=== PATIENT | male | born 1970 | race African-American/Black ===

== ENCOUNTER 2016-03-28 18:11 | Inpatient (IN) ==
[2016-03-28] MEDS ORDERED: SODIUM CHLORIDE 0.9% 1,000 ML IV STA (19:13)
--- NOTE | 2016-03-28 19:18 | Emergency Department Note ---
Arrival - Arrival Chief Complaint: Sickle Cell Stated Complaint: possiblity of blood count up/sickle cell ED Nursing Triage Note: brother reports that pt started feeling bad last night c /o sickle cell pain. today pt has been having jerking spells and less responsive. pt is jerking around in wheelchair during triage. sclera in eyes noted yellow. reports that he does this when his counts are low. Mode of Arrival: Wheelchair Limitations: Altered Mental Status Source: Family Time Seen by Provider: 03/28/16 19:07 - History of Present Illness HPI Narrative: This 45-year-old black male presents with a history of awakening this morning with an alleged sickle cell attack. This history is gleaned from a family member as the patient himself although oriented 3 gives a confused history. Initially the family thought he was here for leukemia but the patient states it is sickle cell. However, he has not followed in [place], and is followed by a physician in [place]. Currently he appears in bed alert but doing serpentine motions with his extremities and complaining of total body pain. Family members present state this is what his attacks look like and that his pain associated with this disease is a generalized pain. Other then the bizarre body motions the patient appears in no acute distress. Onset (ago): hour(s) (patient presents 12 hours post onset of symptoms) Consistency: constant Allergies/Adverse Reactions: Allergies Allergy/AdvReac Type Severity Reaction Status Date / Time codeine Allergy Unknown/Unable Verified 03/28/16 18:32 to obtain Review of System - Review of System 12 point system: reviewed and no additional remarkable complaints except as stated - Review of System Constitutional: Present: as per HPI Musculoskeletal: Present: as per HPI Medical,Surgical,& Family Hx - Medical History Hematology: History of: Sickle Cell Disease - Social History Smoking Status: Never smoker Exam Physical Examination: GENERAL: Thin frail black male presents with serpentine motions of all extremities in no acute distress. HEENT: Normocephalic. No trauma. Moist mucous membranes. EOMI. PERRLA. ENT clear NECK: Supple. No adenopathy. CARDIAC: Regular. No murmurs. Heart rate 106 CHEST: Clear to auscultation. No respiratory distress. O2 sat 95% ABDOMEN: Soft. Nontender. Active bowel sounds. EXTREMITIES: No trauma. Normal ROM. No pedal edema. SKIN: No diaphoresis. No rash. NEURO: Alert. Oriented 3 but not fully coherent. Motor sensory vibratory intact despite bizarre motor movements of the extremities. No focal deficits. Vital Signs: Vital Signs Temperature 101.2 F H 03/28/16 18:40 Pulse Rate 106 H 03/28/16 18:40 Respiratory Rate 28 H 03/28/16 18:40 Blood Pressure 112/60 03/28/16 18:40 O2 Sat by Pulse Oximetry 100 03/28/16 18:40 Course - Reevaluation(s) Reevaluation #1: Discussed with family the need for hospitalization - Consultations Consultation #1: Discussed with Dr. Tran, hospitalist, who will admit for further evaluation and treatment. Results - Labs CBC & BMP: 03/28/16 18:51 03/28/16 19:53 Labs: I reviewed the patient's laboratory results and noted the very elevated white blood cell count, but very depressed red blood cell count, the very elevated retic count, the extremely elevated total CK, and the elevated BUN and creatinine. - Impressions EKG: Sinus tachycardia 101 with normal AL interval and QRS duration. Positive for left ventricular hypertrophy noted with evidence of old lateral wall myocardial infarction. Notable was absence of severely elevated T waves. No acute injury pattern noted. - Diagnostic Findings Procedure: Chest x-ray: image reviewed by me, report reviewed by me (increased perihilar opacities that could indicate pneumonia or simply scarring), CT: image reviewed by me, report reviewed by me (head: No acute findings but evidence of scattered transient lucencies consistent with multiple myeloma) Disposition Clinical Impression: sickle cell disease, severe anemia, acute renal failure, rhabdomyolysis Case discussed with: patient, patient's family Disposition: Still a Patient Condition: Guarded Time of Disposition: 21:02
[2016-03-28] MEDS ORDERED: cefTRIAXone 1,000 MG in SODIUM CHLORIDE 0.9% 100 ML IV STA (19:24)
--- NOTE | 2016-03-28 19:35 | CT Report ---
CT head/brain wo con Indication: Mental status changes Comparison: None Technique: Multiple axial tomographic images of the brain were obtained without use of intravenous contrast. Findings: Midline structures are nondisplaced. There is no acute intracranial hemorrhage or evidence of hydrocephalus. Atherosclerotic calcifications noted. Senescent mineralization the bilateral basal ganglia present. Paranasal sinuses and mastoid air cells are clear. Scattered subcentimeter nonspecific lucencies within the calvarium. IMPRESSION: No acute intracranial abnormality demonstrated. Scattered subcentimeter lucencies demonstrated within the calvarium. This finding is nonspecific. Multiple myeloma is not excluded. PROCEDURE INTERPRETED AT [facility] Final Report Signed by: Dr Jeremias Herring
[2016-03-28 19:50] LABS: Basophils % 0.1 % (0.0-0.8); Immature Granulocytes % 0.9 %; Immature Granulocytes Absolute 0.25 #; Lymphocytes # 2.1 10*3/uL (1.4-4.0); Lymphocytes % 7.9 % (21.2-54.2); Mean Corpuscular HGB Conc 35.4 GM/DL (32-36); Mean Corpuscular Hemoglobin 29 PG (27-34); Mean Corpuscular Volume 81.7 FL (87-102); Mean Platelet Volume 11.2 FL (9.6-12.0); Monocytes # 2.5 10*3/uL (0.11-0.8); Monocytes % 9.3 % (1.7-12.7); NRBC # 0.89 10*3/uL; Neutrophils # 21.8 10*3/uL (1.4-7.4); Neutrophils % 81.8 % (38.7-73.9); Platelet Count 413 10*3/uL (130-400); Red Cell Distribution Width 19.7 % (9.3-17.3); White Blood Count 26.6 10*3/uL (4.5-13.71)
[2016-03-28 19:53] LABS: Hematocrit 14.7 VOL% (42.0-52.0); Hemoglobin 5.2 GM/DL (14.0-18.0)
[2016-03-28 20:11] LABS: INR 1.2
[2016-03-28] MEDS ORDERED: cefTRIAXone 1,000 MG VIAL ONE (20:13)
--- NOTE | 2016-03-28 20:17 | XRay Report ---
XR chest 1V portable Indication: Altered mental status Comparison: None Technique: Single frontal view of the chest Findings: Mild cardiomegaly. Mild bilateral perihilar opacities may reflect early consolidative process such pulmonary edema or pneumonia. No pneumothorax. Osseous and surrounding soft tissue structures demonstrate no acute abnormality. Mild S-shaped curvature of the spine. IMPRESSION: As above. PROCEDURE INTERPRETED AT [facility] DEPARTMENT OF RADIOLOGY Final Report Signed by: Dr Jeremias Herring
[2016-03-28 20:29] LABS: Ammonia 56 UMOL/L (11-32)
[2016-03-28 20:39] LABS: Alanine Aminotransferase 137 U/L (16-61); Albumin 3.8 G/DL (3.4-5.0); Alkaline Phosphatase 160 U/L (45-117); Aspartate Amino Transferase 235 U/L (0-37); Blood Urea Nitrogen 86 MG/DL (7-18); Calcium 7.9 MG/DL (8.5-10.1); Glucose 107 MG/DL (74-106); Osmolality,Calculated 306.3 MOS/KG (273-304); Sodium 141 MMOL/L (136-145); Total Protein 7.6 G/DL (6.4-8.3)
[2016-03-28 20:44] LABS: CKMB % 0.8 %; Troponin I Only 0.096 NG/ML (0.00-0.045)
[2016-03-28 20:46] LABS: Potassium 7.2 MMOL/L (3.5-5.1)
[2016-03-28] MEDS ORDERED: CALCIUM CHLORIDE 1,000 MG/10 ML SYRINGE IV STA (20:55)
[2016-03-28] MEDS ORDERED: ALBUTEROL NEB SOLN 5 MG/ML 20 ML/BOTTLE CONT NEB STA (20:55)
[2016-03-28] MEDS ORDERED: DEXTROSE 50% 25 GM/50 ML VIAL IV STA (20:58)
[2016-03-28] MEDS ORDERED: SODIUM BICARBONATE 50 MEQ/50 ML VIAL IV STA (20:58)
[2016-03-28] MEDS ORDERED: INSULIN REGULAR 100 UNIT/ML SUBCUT STA (20:58)
--- NOTE | 2016-03-28 21:01 | EKG Report ---
Stationary ECG Study [facility] ER Test Date: 03/28/2016 9:01:03 PM Pat Name: PHAM GUY Department: Room: Gender: M Occupational Therapy Co Director: : 1970 Requested by: Mg Rivera Order Number: [id number] Reading MD: TWYLA PANDYA Intervals Anza Rate: 101 P: 38 IL: 146 QRS: 78 QRSD: 96 T: 49 QT: 355 QTc: 413 Interpretive Statements SINUS TACHYCARDIA MODERATE VOLTAGE CRITERIA FOR LVH, CONSIDER NORMAL VARIANT POSSIBLE LATERAL MYOCARDIAL INFARCTION, PROBABLY OLD ABNORMAL RHYTHM ECG Electronically Signed On 03-28-16 21:32:16 RESEARCH ADMINISTRATOR by TWYLA PANDYA [email or web address]
[2016-03-28] MEDS ORDERED: SODIUM BICARBONATE 50 MEQ/50 ML VIAL IV ONE (21:19)
[2016-03-28] MEDS ORDERED: DEXTROSE 50% 25 GM/50 ML VIAL IV ONE (21:19)
[2016-03-28] MEDS ORDERED: CALCIUM CHLORIDE 1,000 MG/10 ML SYRINGE IV ONE (21:20)
[2016-03-28] MEDS ORDERED: INSULIN REGULAR 100 UNIT/ML ONE (21:23)
[2016-03-28] MEDS ORDERED: LORazepam 2 MG/1 ML VIAL IV STA (21:53)
[2016-03-28] MEDS ORDERED: HYDROmorphone 2 MG/1 ML VIAL IV STA (21:55)
[2016-03-28 21:59] LABS: Lymphocytes 9 % (20-55); Nucleated Red Blood Cells 4 (0-5); Platelet Estimate Normal; Polychromasia Few; Segmented Neutrophils 90 % (50-85); Total Cells Counted 100
[2016-03-28 22:00] LABS: Sickle Cells 1+; Target Cells Few
[2016-03-28] MEDS ORDERED: HYDROmorphone 2 MG/1 ML VIAL ONE (22:07)
--- NOTE | 2016-03-28 22:07 | Hospitalist History & Physical ---
Assessment and Plan (1) Sickle cell anemia with pain Status: Acute Assessment and plan: The patient is admitted to the hospital with profound anemia consistent with sickle cell disease and painful crisis. His difficult to interpret the patient' s examination which may be due to substance withdrawal. The patient will be treated for pain with Dilaudid and 4 substance withdrawal with Ativan. We'll observe him in the intensive care unit. We have have obtained blood cultures and will obtain urine study when urine is available. The patient will be treated with IV antibiotics will check lactate level. The patient will receive IV hydration and fluid challenge. The patient has acute renal failure based on elevated creatinine as well as acidosis. We will recheck potassium in 3 hours and continue to treat as required. Current Visit: Yes History of Present Illness Chief complaint: generalized pain with altered mental status and coreaform movements History of present illness: Mr. Vergara is a 45 year old male from [facility]. He is accompanied by his father who states that he has had sickle cell anemia with medical care since a child. The father states that the patient lives in [place] became to visit him here near [place] yesterday. The patient's father states that he awoke this morning complaining of generalized pain consistent with sickle cell crisis. The pain worsened through the day and the family brought him to our emergency room this afternoon. The patient has become progressively less alert and continues to have cordiform movements and does not lay still even if commanded. The patient's symptoms are associated with fever. The patient's symptoms are not associated with shortness of breath. The patient's symptoms are associated with profound anemia and leukocytosis. The patient is now admitted to the hospital for treatment of apparent sickle cell crisis with rhabdomyolysis and acute renal failure with possible underlying chronic kidney failure. The patient's father states that his last hospitalization was about 3 weeks ago in [place] but knows no details about that hospitalization. Allergies Allergy/AdvReac Type Severity Reaction Status Date / Time codeine Allergy Unknown/Unable Verified 03/28/16 18:32 to obtain Medical,Surgical,& Family Hx - Medical History Hematology: History of: Sickle Cell Disease - Family History Family History: Reports;: Family Hypertension - Social History Smoking Status: Never smoker Marital Status: Lives With:: Spouse Functional capacity: independent ambulation 12 point system: reviewed and no additional remarkable complaints except as stated Exam - Constitutional Vitals: Period Temp Pulse Resp BP Sys/Craig Pulse Ox Last 24 Hr 101.2 F-101.2 F 100-106 18-28 104-112/47-60 95-100 Exam: Constitutional System: Moderate distress. Moderate tremulousness. The patient is unable to cooperate with interview due to altered mental status Head: Normocephalic, atraumatic. Ears, Nose and Throat System: No evidence of Otitis or Mastoiditis. No epistaxis or discharge Eyes System: Pupils equal, round, and reactive. Extraocular muscles intact. Neck: Supple, without adenopathy, No jugular venous distention. No thyromegaly , neck mass, or prior surgery apparent. Respiratory System: Chest clear to auscultation. Cardiovascular System: Heart with regular rate and rhythm. No murmur. GI System: Abdomen soft, nontender. Normoactive bowel sounds present. Musculoskeletal System: limbs with no pedal edema. Full distal pulses. Reduced muscular bulk and tone Neurological System: Moves all extremities Psychiatric System: Conversation is confused, delirious Results - Labs CBC & BMP: 03/28/16 18:51 03/28/16 19:53 Lab Results: I have reviewed the past 24 hour labs
[2016-03-28] MEDS ORDERED: LORazepam 2 MG/1 ML VIAL ONE (22:08)
[2016-03-28] MEDS ORDERED: SODIUM CHLORIDE 0.9% 1,000 ML IV ONE (22:45)
[2016-03-28] MEDS ORDERED: ONDANSETRON 4 MG/2 ML VIAL IV PRN (22:45)
[2016-03-28] MEDS ORDERED: ACETAMINOPHEN 325 MG TABLET PO PRN (23:00)
[2016-03-28] MEDS ORDERED: SODIUM CHLORIDE 0.9% 250 ML IV PRN (23:04)
[2016-03-29] MEDS: ENOXAPARIN 40 MG/0.4 ML SYRINGE SUBCUT SCH ×2 (01:12→23:35)
[2016-03-29] MEDS: SODIUM CHLORIDE 0.9% 1,000 ML IV SCH (01:41)
[2016-03-29 01:47] LABS: Basophils % 0.1 % (0.0-0.8); Immature Granulocytes % 0.8 %; Immature Granulocytes Absolute 0.19 #; Lymphocytes # 3.5 10*3/uL (1.4-4.0); Lymphocytes % 14.3 % (21.2-54.2); Mean Corpuscular HGB Conc 33.1 GM/DL (32-36); Mean Corpuscular Hemoglobin 28 PG (27-34); Mean Corpuscular Volume 83.1 FL (87-102); Mean Platelet Volume 10.5 FL (9.6-12.0); Monocytes # 3.2 10*3/uL (0.11-0.8); Monocytes % 13.1 % (1.7-12.7); NRBC # 1.21 10*3/uL; Neutrophils # 17.7 10*3/uL (1.4-7.4); Neutrophils % 71.7 % (38.7-73.9); Platelet Count 320 10*3/uL (130-400); Red Cell Distribution Width 20.1 % (9.3-17.3); White Blood Count 24.7 10*3/uL (4.5-13.71)
[2016-03-29 01:59] LABS: Hematocrit 11.8 VOL% (42.0-52.0); Hemoglobin 3.9 GM/DL (14.0-18.0); Red Blood Count 1.42 10*6/uL (3.8-5.5)
[2016-03-29 02:02] LABS: Barbiturates Screen,Urine Negative (Negative); Benzodiazepines Screen,Urine Negative (Negative); Cannabinoid Screen,Urine Negative (Negative); Opiate Screen,Urine Positive (Negative); Phencyclidine Screen,Urine Negative (Negative)
[2016-03-29 02:15] LABS: Calcium 7.6 MG/DL (8.5-10.1); Magnesium 1.8 MG/DL (1.8-2.4); Osmolality,Calculated 317.4 MOS/KG (273-304)
[2016-03-29 02:31] LABS: Lactic Acid 0.7 MMOL/L (0.4-2.0)
[2016-03-29 03:06] LABS: Troponin I Only 0.153 NG/ML (0.00-0.045)
--- NOTE | 2016-03-29 07:24 | Hospitalist Progress Note ---
Assessment and Plan (1) Sickle cell anemia with pain Status: Acute Assessment and plan: The patient is admitted to the hospital with profound anemia consistent with sickle cell disease and painful crisis. His difficult to interpret the patient' s examination which may be due to substance withdrawal. The patient will be treated for pain with Dilaudid and for substance withdrawal with Ativan. The patient continues therapy in the intensive care unit. He is hemodynamically stable. We will continue IV antibiotics, hydration, transfusion , and do surveillance for infection. The patient has profound acute kidney injury apparently due to dehydration. We don't have a record of possible underlying kidney disease. We will obtain ultrasound of renal system to rule out obstruction and obtain nephrology consultation. Potassium and creatinine show an improving trend. Current Visit: Yes Hospitalist: Subjective Interval history: The patient is awake but sedated in the intensive care unit. He is no longer having choreoform movements. The patient is breathing comfortably. Blood transfusion is underway Exam - Constitutional Vitals: Period Temp Pulse Resp BP Sys/Craig Pulse Ox Last 24 Hr 98.9 F-99.8 F 90-120 12-26 94-122/39-78 92-100 Exam: Constitutional System: The patient sedated this morning but without distress. Head: Normocephalic, atraumatic. Ears, Nose and Throat System: No evidence of Otitis or Mastoiditis. No epistaxis or discharge Eyes System: Pupils equal, round, and reactive. Extraocular muscles intact. Neck: Supple, without adenopathy, No jugular venous distention. No thyromegaly , neck mass, or prior surgery apparent. Respiratory System: Chest clear to auscultation. Cardiovascular System: Heart with regular tachycardic rate and rhythm. No murmur. GI System: Abdomen soft, nontender. Normoactive bowel sounds present. Musculoskeletal System: limbs with no pedal edema. Full distal pulses. Reduced muscular bulk and tone Results - Labs CBC & BMP: 03/29/16 01:24 03/29/16 01:24 Lab Results: I have reviewed the past 24 hour labs
[2016-03-29 08:19] LABS: Apearance,Urine Slightly Hazy (Clear); Bacteria,Urine Occasional /HPF (Few); Bilirubin,Urine Negative (Negative); Blood, Urine Large mg/dL (Negative); Glucose,Urine (UA) Negative (Negative); Ketones,Urine Negative (Negative); Mucus,Urine Occasional /LPF (Occasional); Nitrite,Urine Negative (Negative); Protein,Urine 30 MG/DL; RBC,Urine 16 /HPF (0-4); Squamous Epithelial Cell,Urine Occasional /HPF (0-10); Urine Color Yellow (Yellow); Urine Specific Gravity 1.009 (1.001-1.035); Urine Urobilinogen < 2.0 EU/DL (0.2-1.0); WBC,Urine 35 /HPF (0-6)
[2016-03-29 08:22] LABS: Barbiturates Screen,Urine Negative (Negative); Benzodiazepines Screen,Urine Negative (Negative); Cannabinoid Screen,Urine Negative (Negative); Opiate Screen,Urine Positive (Negative); Phencyclidine Screen,Urine Negative (Negative)
[2016-03-29] MEDS ORDERED: PANTOPRAZOLE 40 MG TABLET PO SCH (09:00)
--- NOTE | 2016-03-29 09:50 | Ultrasound Report ---
Exam: US renal Bilateral Date: 03/28/2016 11:21 PM Comparison: None Indication: Elevated renal function tests Technique: Multiple transabdominal real-time scans were obtained. Color flow scans were obtained. Ultrasound images were captured and stored. Findings: Right kidney measures 105 x 47 x 41 mm. Left kidney measures 139 x 74 x 59 mm. No hydronephrosis. 16 mm simple appearing right lower pole renal cyst. 25 mm irregular hypoechoic finding in the upper pole of the right kidney. More inhomogeneous echogenicity in the left kidney with poorly defined 38 mm complex cystic midpole finding. Impression: No hydronephrosis. 16 mm simple appearing right lower pole renal cyst. Indeterminant 25 mm irregular complex finding in the upper pole of the right kidney. This finding could be related to infectious process, infarction, mass, etc. Additionally the left kidney demonstrates more inhomogeneous echogenicity which can be seen with possible medical renal disease with 38 mm irregular complex cyst in the mid pole location. CT may be helpful for further evaluation. PROCEDURE INTERPRETED AT [facility] DEPARTMENT OF RADIOLOGY Final Report Signed by: Dr. Barbara Pena
--- NOTE | 2016-03-29 12:01 | Nephrology Consult Note ---
History of Present Illness Chief complaint: ARF History of present illness: Mr. Vergara is a 45 year old male with sickle cell disease who presented with a crisis and was found to be in acute renal failure. He had a hematocrit of 11 and has been transfused. He was not acidotic but was hyperkalemic and that is improved. With fluid resuscitation he is making urine and decreasing his serum potassium. He is arousable but very twitchy. He's a thin man with a clear chest and heart without rub or gallop. He has no peripheral edema at all. Other lab indicates muscle injury and rhabdomyolysis with a 4000 CPK and strongly positive urine for blood with only 15 red cells per high power field on admission. Impression sickle cell crisis with acute renal failure #2 hyperkalemia secondary to acute renal failure #3 profound anemia secondary to sickle cell disease. Plan: His serum sodium is rising and we will decrease the sodium content of his IV fluids but continue to give his fluid at 125/h and add bicarbonate to alkalinize his urine. His serum creatinine should continue to follow with his adequate blood pressure. Allergies Allergy/AdvReac Type Severity Reaction Status Date / Time codeine Allergy Unknown/Unable Verified 03/28/16 18:32 to obtain Medical,Surgical,& Family Hx - Medical History Hematology: History of: Sickle Cell Disease - Family History Family History: Reports;: Family Hypertension - Social History Smoking Status: Never smoker Type of Drug Use: Unknown Review of Systems 12 point system: reviewed and no additional remarkable complaints except as stated Exam - Vital Signs Vital signs: Period Temp Pulse Resp BP Sys/Craig Pulse Ox Last 24 Hr 98.9 F-100 F 90-120 12-26 94-153/39-78 91-100 - General Appearance General appearance: chronically ill EENT: ATNC Neck: no JVD, no thyromegaly, no carotid bruit, supple Respiratory: no kyphosis, no scoliosis Cardiology: no murmurs, no rub, no gallops, no edema, regular rate, regular rhythm, normal S1, normal S2 Gastrointestinal: normoactive bowel sounds Integumentary: no rash, warm and dry Neurologic: no focal deficit, no asterixis, alert and oriented x3, reflexes 2+ and symmetric, gait normal, strength 5/5 Musculoskeletal: no deformities, no erythema, no cyanosis, no clubbing Psychiatric: agitated Results - Labs CBC & BMP: 03/29/16 01:24 03/29/16 01:24 Assessment and Plan (1) Renal failure (ARF), acute on chronic Status: Acute Current Visit: Yes (2) Sickle cell anemia with pain Status: Acute Current Visit: Yes Specialty Discharge - Follow Up or Referrals - Speciality Discharge Instructions Nephrology Instructions: 03/20 NS with 50meq bicarb at 125cc/hr.
[2016-03-29] MEDS ORDERED: SODIUM CHLORIDE 0.9% 250 ML IV PRN (12:07)
[2016-03-29 12:42] LABS: Basophils % 0.1 % (0.0-0.8); Hematocrit 25.8 VOL% (42.0-52.0); Hemoglobin 8.2 GM/DL (14.0-18.0); Immature Granulocytes % 0.9 %; Immature Granulocytes Absolute 0.26 #; Lymphocytes # 0.5 10*3/uL (1.4-4.0); Lymphocytes % 1.6 % (21.2-54.2); Mean Corpuscular HGB Conc 31.8 GM/DL (32-36); Mean Corpuscular Hemoglobin 29 PG (27-34); Mean Corpuscular Volume 89.9 FL (87-102); Mean Platelet Volume 10.3 FL (9.6-12.0); Monocytes # 2.6 10*3/uL (0.11-0.8); Monocytes % 8.9 % (1.7-12.7); NRBC # 2.12 10*3/uL; Neutrophils # 26.1 10*3/uL (1.4-7.4); Neutrophils % 88.5 % (38.7-73.9); Platelet Count 319 10*3/uL (130-400); Red Blood Count 2.87 10*6/uL (3.8-5.5); Red Cell Distribution Width 19.3 % (9.3-17.3); White Blood Count 29.5 10*3/uL (4.5-13.71)
[2016-03-29] MEDS: SODIUM CHLORIDE 23.4% CONC INJ 38.5 MEQ, SODIUM BICARB INJ 50 MEQ in STERILE WATER INJ ... IV SCH (15:27)
[2016-03-29] MEDS ORDERED: IBUPROFEN 200 MG TABLET PO PRN (16:25)
[2016-03-29] MEDS: LEVOFLOXACIN INJ 500 MG in PREMIX 1 EACH IV SCH (16:38)
[2016-03-29] MEDS ORDERED: DEXTROSE 50% 25 GM/50 ML VIAL IV PRN (18:20)
[2016-03-29] MEDS ORDERED: GLUCAGON 1 MG VIAL IM PRN (18:20)
[2016-03-29] MEDS: cefTRIAXone 1,000 MG in SODIUM CHLORIDE 0.9% 100 ML IV SCH (20:09)
[2016-03-30] MEDS: SODIUM CHLORIDE 23.4% CONC INJ 38.5 MEQ, SODIUM BICARB INJ 50 MEQ in STERILE WATER INJ ... IV SCH ×2 (02:19→10:17)
[2016-03-30] MEDS: HYDROmorphone 2 MG/1 ML VIAL IV PRN ×4 (02:54→19:36)
[2016-03-30 04:41] LABS: Basophils # 0.1 10*3/uL (0.0-0.2); Basophils % 0.2 % (0.0-0.8); Hematocrit 19.1 VOL% (42.0-52.0); Immature Granulocytes Absolute 0.77 #; Lymphocytes # 2.2 10*3/uL (1.4-4.0); Lymphocytes % 5.7 % (21.2-54.2); Mean Corpuscular HGB Conc 33.5 GM/DL (32-36); Mean Corpuscular Hemoglobin 29 PG (27-34); Mean Corpuscular Volume 86.4 FL (87-102); Mean Platelet Volume 10.7 FL (9.6-12.0); Monocytes # 3.3 10*3/uL (0.11-0.8); Monocytes % 8.5 % (1.7-12.7); Neutrophils # 31.9 10*3/uL (1.4-7.4); Neutrophils % 83.6 % (38.7-73.9); Platelet Count 289 10*3/uL (130-400); Red Blood Count 2.21 10*6/uL (3.8-5.5); Red Cell Distribution Width 19.3 % (9.3-17.3); White Blood Count 38.2 10*3/uL (4.5-13.71)
[2016-03-30 05:17] LABS: Albumin 2.8 G/DL (3.4-5.0); Bilirubin,Total 2.5 MG/DL (0.2-1.0); Calcium 7.9 MG/DL (8.5-10.1); Osmolality,Calculated 324.7 MOS/KG (273-304); Potassium 5.4 MMOL/L (3.5-5.1); Total Protein 6.2 G/DL (6.4-8.3)
[2016-03-30 05:34] LABS: Hemoglobin 6.4 GM/DL (14.0-18.0)
[2016-03-30 06:05] LABS: Band Neutrophils 2 % (0-10); Elliptocytes Few; Hypochromasia 1+; Lymphocytes 11 % (20-55); Macrocytosis Slight; Nucleated Red Blood Cells 10 (0-5); Platelet Estimate Adequate; Polychromasia Slight; Segmented Neutrophils 85 % (50-85); Sickle Cells 1+; Total Cells Counted 100
--- NOTE | 2016-03-30 08:20 | Hospitalist Progress Note ---
Assessment and Plan (1) Sickle cell anemia with pain Status: Acute Assessment and plan: The patient is admitted to the hospital with profound anemia consistent with sickle cell disease and painful crisis. His difficult to interpret the patient' s examination which may be due to substance withdrawal. The patient will be treated for pain with Dilaudid and for substance withdrawal with Ativan. The patient continues therapy in the intensive care unit. He is hemodynamically stable. We will continue IV antibiotics, hydration, transfusion , and do surveillance for infection. The patient has profound acute kidney injury apparently due to dehydration. Creatinine and urine output are improving. The patient will receive additional transfusion today and he continues on nutrition via NG tube. The patient seems to be improving via incremental fashion Current Visit: Yes Hospitalist: Subjective Interval history: The patient is more alert today. He is not taking any oral medications or nutrition yet. The patient has less tremulousness. The patient appears to still have some pain. The patient received 2 units packed red blood cell transfusion yesterday and hemoglobin has dropped some more. We are going to give no additional 2 units packed red blood cells today. The patient has some urine output today. Exam - Constitutional Vitals: Period Temp Pulse Resp BP Sys/Craig Pulse Ox Last 24 Hr 97 F-103.5 F 64-121 12-30 96-153/42-77 90-96 Exam: Constitutional System: The patient is more interactive today than he was yesterday Head: Normocephalic, atraumatic. Ears, Nose and Throat System: No evidence of Otitis or Mastoiditis. No epistaxis or discharge Eyes System: Pupils equal, round, and reactive. Extraocular muscles intact. Neck: Supple, without adenopathy, No jugular venous distention. No thyromegaly , neck mass, or prior surgery apparent. Respiratory System: Chest clear to auscultation. Cardiovascular System: Heart with regular tachycardic rate and rhythm. No murmur. GI System: Abdomen soft, he appears to have some generalized tenderness. Normoactive bowel sounds present. Musculoskeletal System: limbs with no pedal edema. Full distal pulses. Reduced muscular bulk and tone Results - Labs CBC & BMP: 03/30/16 03:33 03/30/16 03:33 Lab Results: I have reviewed the past 24 hour labs
[2016-03-30] MEDS: PANTOPRAZOLE 40 MG VIAL IV SCH (08:27)
--- NOTE | 2016-03-30 09:05 | Nephrology Progress Note ---
Nephrology - PN: Subj Interval history: Mr. Vergara is seen in follow-up of his acute renal failure. He is improved with his creatinine now down to 3.7 from yesterday 7.1. His potassium is 5.4 but serum sodium is risen to 152. He is more alert. He has no edema urine output is brisk We will eliminate sodium from his IV fluid and give some free water by his NG tube. We will continue his supplemental bicarbonate for now. In summary he is improved with his improving renal function. His hematocrit is 19 he will be further transfuse today. Exam (PN)-Nephrology - Vital Signs Vital signs: Period Temp Pulse Resp BP Sys/Craig Pulse Ox Last 24 Hr 97 F-103.5 F 64-121 12-30 96-143/42-77 90-96 - Lab 03/30/16 03:33 03/30/16 03:33 Most recent lab results Calcium 7.9 MG/DL (8.5-10.1) L 03/30/16 03:33 Magnesium 1.8 MG/DL (1.8-2.4) 03/29/16 01:24 Assessment and Plan (1) Renal failure (ARF), acute on chronic Status: Acute Current Visit: Yes (2) Sickle cell anemia with pain Status: Acute Current Visit: Yes
--- NOTE | 2016-03-30 10:38 | XRay Report ---
3 short of breath Comparison 03/28/2016 The heart is mildly enlarged. NG tube traverses the chest There has been worsening of moderate bilateral hazy and interstitial pulmonary opacities in the lower two thirds of the chest with a worsening small bilateral pleural effusions. Upper lobe vasculature is prominent Impression: worsening of the diffuse bilateral pulmonary opacities most likely edema PROCEDURE INTERPRETED AT [facility] DEPARTMENT OF RADIOLOGY Final Report Signed by: Dr. Janneth Salgado
[2016-03-30] MEDS: SODIUM BICARB INJ 50 MEQ in DEXTROSE 5% 1,000 ML IV SCH ×2 (12:37→21:33)
[2016-03-30] MEDS: SODIUM CHLORIDE 0.9% 1,000 ML IV SCH (14:01)
[2016-03-30] MEDS: cefTRIAXone 1,000 MG in SODIUM CHLORIDE 0.9% 100 ML IV SCH (19:38)
[2016-03-30] MEDS: LORazepam 2 MG/1 ML VIAL IV PRN (21:12)
[2016-03-31] MEDS: ENOXAPARIN 40 MG/0.4 ML SYRINGE SUBCUT SCH ×2 (00:46→21:45)
[2016-03-31] MEDS: HYDROmorphone 2 MG/1 ML VIAL IV PRN ×10 (01:00→22:26)
[2016-03-31] MEDS: LORazepam 2 MG/1 ML VIAL IV PRN ×3 (03:13→23:34)
[2016-03-31 04:12] LABS: Basophils % 0.1 % (0.0-0.8); Eosinophils # 0.1 10*3/uL (0.0-0.87); Eosinophils % 0.4 % (0.00-10.9); Hematocrit 24.9 VOL% (42.0-52.0); Hemoglobin 8.4 GM/DL (14.0-18.0); Immature Granulocytes % 1.2 %; Immature Granulocytes Absolute 0.33 #; Lymphocytes # 1.7 10*3/uL (1.4-4.0); Lymphocytes % 6.5 % (21.2-54.2); Mean Corpuscular HGB Conc 33.7 GM/DL (32-36); Mean Corpuscular Hemoglobin 29 PG (27-34); Mean Corpuscular Volume 86.5 FL (87-102); Mean Platelet Volume 10.3 FL (9.6-12.0); Monocytes # 2.1 10*3/uL (0.11-0.8); Monocytes % 7.7 % (1.7-12.7); NRBC # 1.35 10*3/uL; Neutrophils # 22.5 10*3/uL (1.4-7.4); Neutrophils % 84.1 % (38.7-73.9); Platelet Count 253 10*3/uL (130-400); Red Blood Count 2.88 10*6/uL (3.8-5.5); Red Cell Distribution Width 17.7 % (9.3-17.3); White Blood Count 26.8 10*3/uL (4.5-13.71)
[2016-03-31 04:40] LABS: Calcium 7.7 MG/DL (8.5-10.1); Magnesium 1.5 MG/DL (1.8-2.4); Osmolality,Calculated 318.9 MOS/KG (273-304); Potassium 4.3 MMOL/L (3.5-5.1)
[2016-03-31] MEDS: SODIUM BICARB INJ 50 MEQ in DEXTROSE 5% 1,000 ML IV SCH ×2 (06:14→12:07)
[2016-03-31] MEDS ORDERED: MAGNESIUM SULF RIDER 2 GM in PREMIX 1 EACH IV ONE (07:45)
--- NOTE | 2016-03-31 08:47 | Nephrology Progress Note ---
Nephrology - PN: Subj Interval history: Mr. Ross is seen in follow-up of his acute renal failure in the midst of a sickle cell crisis. His creatinine is improving now down to 1.9. His measured serum bicarbonate is 30 and serum sodium still 151. We will discontinue sodium bicarbonate from his IV fluids and continue with the D5W administration. His hematocrit this morning is 25%. Overall he is improved but his mental status is still variable. No distress. Exam (PN)-Nephrology - Vital Signs Vital signs: Period Temp Pulse Resp BP Sys/Craig Pulse Ox Last 24 Hr 98.0 F-100.1 F 90-117 12-25 104-177/58-99 94-99 - Lab 03/31/16 03:40 03/31/16 03:40 Most recent lab results Calcium 7.7 MG/DL (8.5-10.1) L 03/31/16 03:40 Magnesium 1.5 MG/DL (1.8-2.4) L 03/31/16 03:40 Assessment and Plan (1) Renal failure (ARF), acute on chronic Status: Acute Current Visit: Yes (2) Sickle cell anemia with pain Status: Acute Current Visit: Yes
[2016-03-31] MEDS: PANTOPRAZOLE 40 MG VIAL IV SCH (09:10)
--- NOTE | 2016-03-31 09:31 | Hospitalist Progress Note ---
Assessment and Plan (1) Sickle cell anemia with pain Status: Acute Assessment and plan: The patient is admitted to the hospital with profound anemia consistent with sickle cell disease and painful crisis. I met with the patient's last evening and updated her concerning his medical status. She states that this is his typical sickle cell crisis and that occasionally he is delirious for several days. The patient's describes him as unlikely to use recreational pharmaceuticals. The patient will be treated for pain with Dilaudid and for substance withdrawal with Ativan. The patient continues therapy in the intensive care unit. He is hemodynamically stable. We will continue IV antibiotics, hydration, transfusion , and do surveillance for infection. The patient has profound acute kidney injury apparently due to dehydration. Creatinine and urine output are improving. The patient will not require additional transfusion today and he continues on nutrition via NG tube. The patient seems to be improving via incremental fashion Current Visit: Yes Hospitalist: Subjective Interval history: The patient is more alert today. The patient remains delirious but is cooperative. The patient has less tremulousness today. The patient is tolerating tube feedings but is unable to take medications or nutrition by mouth. Exam - Constitutional Vitals: Period Temp Pulse Resp BP Sys/Craig Pulse Ox Last 24 Hr 98.0 F-99.5 F 90-117 12-25 107-177/58-99 94-99 Exam: Constitutional System: The patient is more interactive today than he was yesterday Head: Normocephalic, atraumatic. Ears, Nose and Throat System: No evidence of Otitis or Mastoiditis. No epistaxis or discharge Eyes System: Pupils equal, round, and reactive. Extraocular muscles intact. Neck: Supple, without adenopathy, No jugular venous distention. No thyromegaly , neck mass, or prior surgery apparent. Respiratory System: Chest clear to auscultation. Cardiovascular System: Heart with regular tachycardic rate and rhythm. No murmur. GI System: Abdomen soft, he appears to have some generalized tenderness. Normoactive bowel sounds present. Musculoskeletal System: limbs with no pedal edema. Full distal pulses. Reduced muscular bulk and tone Results - Labs CBC & BMP: 03/31/16 03:40 03/31/16 03:40 Lab Results: I have reviewed the past 24 hour labs
[2016-03-31] MEDS: DEXTROSE 5% 1,000 ML IV SCH ×2 (11:46→20:05)
[2016-03-31] MEDS: LEVOFLOXACIN INJ 500 MG in PREMIX 1 EACH IV SCH (15:38)
[2016-03-31 18:26] LABS: Hematocrit 36.4 VOL% (42.0-52.0)
[2016-03-31 18:27] LABS: Hemoglobin 12.3 GM/DL (14.0-18.0)
[2016-03-31] MEDS: cefTRIAXone 1,000 MG in SODIUM CHLORIDE 0.9% 100 ML IV SCH (19:59)
[2016-04-01] MEDS: HYDROmorphone 2 MG/1 ML VIAL IV PRN ×7 (02:29→23:26)
[2016-04-01 04:40] LABS: Basophils # 0.1 10*3/uL (0.0-0.2); Basophils % 0.2 % (0.0-0.8); Eosinophils # 0.4 10*3/uL (0.0-0.87); Eosinophils % 1.5 % (0.00-10.9); Hematocrit 32.2 VOL% (42.0-52.0); Hemoglobin 10.8 GM/DL (14.0-18.0); Immature Granulocytes % 0.8 %; Immature Granulocytes Absolute 0.18 #; Lymphocytes # 1.6 10*3/uL (1.4-4.0); Lymphocytes % 6.7 % (21.2-54.2); Mean Corpuscular HGB Conc 33.5 GM/DL (32-36); Mean Corpuscular Hemoglobin 29 PG (27-34); Mean Corpuscular Volume 86.1 FL (87-102); Mean Platelet Volume 10.6 FL (9.6-12.0); Monocytes # 1.9 10*3/uL (0.11-0.8); Monocytes % 8.1 % (1.7-12.7); NRBC # 1.33 10*3/uL; Neutrophils # 19.6 10*3/uL (1.4-7.4); Neutrophils % 82.7 % (38.7-73.9); Platelet Count 222 10*3/uL (130-400); Red Blood Count 3.74 10*6/uL (3.8-5.5); Red Cell Distribution Width 17.1 % (9.3-17.3); White Blood Count 23.8 10*3/uL (4.5-13.71)
[2016-04-01] MEDS: LORazepam 2 MG/1 ML VIAL IV PRN ×3 (05:02→23:30)
[2016-04-01 05:03] LABS: Calcium 8.3 MG/DL (8.5-10.1); Magnesium 1.7 MG/DL (1.8-2.4); Osmolality,Calculated 299.7 MOS/KG (273-304); Potassium 4.1 MMOL/L (3.5-5.1)
[2016-04-01] MEDS: DEXTROSE 5% 1,000 ML IV SCH ×3 (05:07→22:03)
[2016-04-01 05:35] LABS: Band Neutrophils 3 % (0-10); Lymphocytes 6 % (20-55); Metamyelocytes 1 %; Nucleated Red Blood Cells 6 (0-5); Segmented Neutrophils 86 % (50-85); Total Cells Counted 100
[2016-04-01 05:36] LABS: Acanthocytes Few; Anisocytosis 1+; Hypochromasia 1+; Macrocytosis 1+; Ovalocytes 1+; Platelet Estimate Normal; Sickle Cells Few
--- NOTE | 2016-04-01 08:53 | Hospitalist Progress Note ---
Assessment and Plan (1) Hypertension Status: Acute Current Visit: Yes (2) Altered mental status Status: Acute Current Visit: Yes (3) Sickle cell anemia with pain Status: Acute Current Visit: Yes (4) Renal failure (ARF), acute on chronic Status: Acute Assessment and plan: Review of Dr. Tran's notes this patient was admitted to the hospital with profound anemia consistent with a sickle cell disease and crisis. He discussed the case with the patient's and she states that it is typical in his sickle cell disease that he becomes delirious for several days. We'll continue to observe patient in the intensive care unit is on IV antibiotics hydration and his been transfused. Continue with nutrition to the NG tube. Blood pressure is elevated we'll need to address Current Visit: Yes Hospitalist: Subjective Interval history: Patient's still confused. Exam - Constitutional Vitals: Period Temp Pulse Resp BP Sys/Craig Pulse Ox Last 24 Hr 97.6 F-99.2 F 72-101 12-21 134-190/76-110 92-100 General appearance: normal weight - ENT ENT exam: Present: normal exam - Neck Neck exam: Present: normal inspection - Respiratory Respiratory exam: Present: clear to auscultation bilaterally - Cardiovascular Cardiovascular exam: Present: regular rate and rhythm - GI/Abdominal GI/Abdominal exam: Present: normal bowel sounds - Extremities Exam Extremities exam: Present: normal inspection - Back Exam Back exam: Present: normal inspection - Neurological Exam Neurological exam: Present: altered - Psychiatric Psychiatric exam: Present: other (patient is confused) - Skin Skin exam: Present: normal color Results - Labs CBC & BMP: 04/01/16 04:11 04/01/16 04:11
[2016-04-01] MEDS ORDERED: MAGNESIUM SULF RIDER 1 GM in PREMIX 1 EACH IV ONE (08:55)
[2016-04-01] MEDS ORDERED: EPOETIN ALFA 10,000 UNIT/1 ML VIAL SUBCUT SCH (09:00)
[2016-04-01] MEDS: PANTOPRAZOLE 40 MG VIAL IV SCH (09:11)
[2016-04-01] MEDS: hydrALAZINE 20 MG/1 ML VIAL IV PRN ×2 (09:13→23:35)
--- NOTE | 2016-04-01 09:28 | Nephrology Progress Note ---
Nephrology - PN: Subj Interval history: Mr. Vergara is improved with a creatinine now of 1.2. No longer required bicarbonate is IV fluids. He is calm but not very conversant. His chest is clear and he has no peripheral edema. He does not appear to be in crisis any longer. We will sign off for now. Please reconsult if needed Exam (PN)-Nephrology - Vital Signs Vital signs: Period Temp Pulse Resp BP Sys/Craig Pulse Ox Last 24 Hr 97.6 F-99.2 F 72-101 12-21 134-190/76-113 92-100 - Lab 04/01/16 04:11 04/01/16 04:11 Most recent lab results Calcium 8.3 MG/DL (8.5-10.1) L 04/01/16 04:11 Magnesium 1.7 MG/DL (1.8-2.4) L 04/01/16 04:11 Assessment and Plan (1) Renal failure (ARF), acute on chronic Status: Acute Current Visit: Yes (2) Sickle cell anemia with pain Status: Acute Current Visit: Yes
[2016-04-01] MEDS ORDERED: cloNIDine 0.3 MG/24 HR PATCH TRANSDERM SCH (12:00)
[2016-04-01] MEDS: SKIN HEALING OINT (AQUAPHOR) 50 GM TUBE TOP PRN (12:08)
[2016-04-01] MEDS: cefTRIAXone 1,000 MG in SODIUM CHLORIDE 0.9% 100 ML IV SCH (19:28)
[2016-04-01] MEDS: ENOXAPARIN 40 MG/0.4 ML SYRINGE SUBCUT SCH (23:26)
[2016-04-02 03:58] LABS: Basophils % 0.2 % (0.0-0.8); Eosinophils # 0.3 10*3/uL (0.0-0.87); Eosinophils % 1.3 % (0.00-10.9); Hematocrit 36.2 VOL% (42.0-52.0); Hemoglobin 11.6 GM/DL (14.0-18.0); Immature Granulocytes % 0.7 %; Immature Granulocytes Absolute 0.18 #; Lymphocytes # 1.5 10*3/uL (1.4-4.0); Lymphocytes % 6.2 % (21.2-54.2); Mean Corpuscular Hemoglobin 29 PG (27-34); Mean Corpuscular Volume 91.4 FL (87-102); Mean Platelet Volume 11.4 FL (9.6-12.0); Monocytes # 2.2 10*3/uL (0.11-0.8); Monocytes % 8.8 % (1.7-12.7); NRBC # 1.16 10*3/uL; Neutrophils # 20.3 10*3/uL (1.4-7.4); Neutrophils % 82.8 % (38.7-73.9); Platelet Count 197 10*3/uL (130-400); Red Blood Count 3.96 10*6/uL (3.8-5.5); Red Cell Distribution Width 16.8 % (9.3-17.3); White Blood Count 24.5 10*3/uL (4.5-13.71)
[2016-04-02] MEDS: HYDROmorphone 2 MG/1 ML VIAL IV PRN ×5 (04:16→20:52)
[2016-04-02 04:47] LABS: Calcium 8.3 MG/DL (8.5-10.1); Osmolality,Calculated 283.7 MOS/KG (273-304); Phosphorous 3.9 MG/DL (2.5-4.9); Potassium 5.1 MMOL/L (3.5-5.1); Prealbumin 12.6 MG/DL (20-40)
[2016-04-02] MEDS: DEXTROSE 5% 1,000 ML IV SCH ×2 (06:00→13:40)
[2016-04-02] MEDS: PANTOPRAZOLE 40 MG VIAL IV SCH (09:37)
[2016-04-02] MEDS: SKIN HEALING OINT (AQUAPHOR) 50 GM TUBE TOP PRN (09:38)
--- NOTE | 2016-04-02 13:01 | Hospitalist Progress Note ---
Assessment and Plan (1) Hypertension Status: Acute Current Visit: Yes (2) Altered mental status Status: Acute Current Visit: Yes (3) Sickle cell anemia with pain Status: Acute Current Visit: Yes (4) Renal failure (ARF), acute on chronic Status: Acute Assessment and plan: Review of Dr. Tran's notes this patient was admitted to the hospital with profound anemia consistent with a sickle cell disease and crisis. He discussed the case with the patient's and she states that it is typical in his sickle cell disease that he becomes delirious for several days. We'll continue to observe patient in the intensive care unit is on IV antibiotics hydration and his been transfused. Continue with nutrition to the NG tube. Blood pressure is elevated we'll need to address 04/02/16 hopefully patient's mentation will continue to improve. I will watch him in the unit one more day. Hopefully we can transfer him upstairs tomorrow. Continue with antibiotics for now recheck labs in the morning. Acute kidney injury has now resolved Current Visit: Yes Hospitalist: Subjective Interval history: Patient's confusion is starting to decrease a little Exam - Constitutional Vitals: Period Temp Pulse Resp BP Sys/Craig Pulse Ox Last 24 Hr 98.2 F-98.8 F 73-107 12-22 107-175/63-104 96-100 General appearance: normal weight - ENT ENT exam: Present: normal exam - Neck Neck exam: Present: normal inspection - Respiratory Respiratory exam: Present: clear to auscultation bilaterally - Cardiovascular Cardiovascular exam: Present: regular rate and rhythm - GI/Abdominal GI/Abdominal exam: Present: normal bowel sounds - Extremities Exam Extremities exam: Present: normal inspection - Back Exam Back exam: Present: normal inspection - Neurological Exam Neurological exam: Present: altered - Psychiatric Psychiatric exam: Present: other (patient is confused but improved from yesterday) - Skin Skin exam: Present: normal color Results - Labs CBC & BMP: 04/02/16 03:01 04/02/16 03:01
--- NOTE | 2016-04-02 14:20 | XRay Report ---
XR KUB Indication: Abdominal pain. Abdomen one view: Cholecystectomy clips. Feeding tube terminates left upper quadrant. Phleboliths are present in the pelvis. Cluster of round calcifications projecting over the right upper quadrant noted tracking along the right flank, possibly related to diverticulosis or granulomata. No small bowel dilatation. Normal amount of stool and gas is shown the colon. Bones have somewhat of a hazy groundglass quality suggesting metabolic bone disease. Impression: 1. Unremarkable bowel gas pattern. 2. Numerous right upper quadrant abdominal calcifications may be related to diverticula or prior granulomatous disease. 3. Metabolic bone disorder. Hyperparathyroidism, renal osteodystrophy, etc. PROCEDURE INTERPRETED AT [facility] DEPARTMENT OF RADIOLOGY Final Report Signed by: Elijah Mayer M.D.
[2016-04-02] MEDS: LEVOFLOXACIN INJ 500 MG in PREMIX 1 EACH IV SCH (16:14)
--- NOTE | 2016-04-02 16:14 | Physician Query Form ---
CLICK EDIT DOCUMENT TO SELECT QUERY ANSWER --> OK --> SIGN Marily Rodriguez RN Clinical Ict Analyst W) [phone] (f) [phone] [email or web address]: Make your selection(s) from the choices in EACH section by typing an "x" and enter comments in the comment section. Please use your independent medical judgment in providing your response. This request does not imply that any particular answer is desired or expected. CLINICAL INDICATORS: (Providers should not edit this section) Height: 5ft 8in Weight: 109 lbs [employer] BMI: 16.2 Utility Hand notes: underweight Based on the above, which following choice most accurately represents the patient's nutritional status? (x) Malnutrition ( ) mild ( x) moderate ( ) severe ( ) Protein calorie malnutrition ( ) mild ( ) moderate ( ) severe ( ) Emaciation due to malnutrition ( ) Nutritional marasmus ( ) Cachexia ( ) Underweight ( ) No nutritional deficiency ( ) Other, please specify: ( ) Clinically unable to determine Mild Malnutrition (BMI < 18.5, % Normal Body Weight 85-95%) Moderate Malnutrition (BMI < 17, % Normal Body Weight 75-85%) Severe Malnutrition (BMI < 16, % Normal Body Weight < 75%) Source: Christine COMMENTS: Use of terms such as suspected, likely, or probable (associated with a specific diagnosis that is being evaluated, monitored, or treated as if it exists) are acceptable and can be restated in the discharge summary if not ruled out. MTDD
[2016-04-02] MEDS: cefTRIAXone 1,000 MG in SODIUM CHLORIDE 0.9% 100 ML IV SCH (20:52)
[2016-04-02] MEDS: ENOXAPARIN 40 MG/0.4 ML SYRINGE SUBCUT SCH (23:40)
[2016-04-03] MEDS: LORazepam 2 MG/1 ML VIAL IV PRN (01:52)
[2016-04-03] MEDS: HYDROmorphone 2 MG/1 ML VIAL IV PRN (01:52)
[2016-04-03] MEDS: DEXTROSE 5% 1,000 ML IV SCH ×2 (02:01→12:50)
[2016-04-03 05:18] LABS: Calcium 8.2 MG/DL (8.5-10.1); Magnesium 1.7 MG/DL (1.8-2.4); Osmolality,Calculated 285.5 MOS/KG (273-304); Potassium 4.4 MMOL/L (3.5-5.1)
[2016-04-03] MEDS: PANTOPRAZOLE 40 MG VIAL IV SCH (12:19)
--- NOTE | 2016-04-03 13:32 | Hospitalist Progress Note ---
Assessment and Plan (1) Hypertension Status: Acute Current Visit: Yes (2) Altered mental status Status: Acute Current Visit: Yes (3) Sickle cell anemia with pain Status: Acute Current Visit: Yes (4) Renal failure (ARF), acute on chronic Status: Acute Assessment and plan: Review of Dr. Tran's notes this patient was admitted to the hospital with profound anemia consistent with a sickle cell disease and crisis. He discussed the case with the patient's and she states that it is typical in his sickle cell disease that he becomes delirious for several days. We'll continue to observe patient in the intensive care unit is on IV antibiotics hydration and his been transfused. Continue with nutrition to the NG tube. Blood pressure is elevated we'll need to address 04/02/16 hopefully patient's mentation will continue to improve. I will watch him in the unit one more day. Hopefully we can transfer him upstairs tomorrow. Continue with antibiotics for now recheck labs in the morning. Acute kidney injury has now resolved 04/03/16 I'm sending patient upstairs today. Can increase his free water flushes since iv access has been lost. Hopefully can pull the NG tube and allow him to eat tomorrow Current Visit: Yes Hospitalist: Subjective Interval history: Patient is more awake alert and appropriate today Exam - Constitutional Vitals: Period Temp Pulse Resp BP Sys/Craig Pulse Ox Last 24 Hr 98.7 F-99.6 F 76-95 12-20 96-141/63-91 94-100 General appearance: normal weight - ENT ENT exam: Present: normal exam - Neck Neck exam: Present: normal inspection - Respiratory Respiratory exam: Present: clear to auscultation bilaterally - Cardiovascular Cardiovascular exam: Present: regular rate and rhythm - GI/Abdominal GI/Abdominal exam: Present: normal bowel sounds - Extremities Exam Extremities exam: Present: normal inspection - Back Exam Back exam: Present: normal inspection - Neurological Exam Neurological exam: Present: altered - Psychiatric Psychiatric exam: Present: other (patient is confused but really improved from yesterday) - Skin Skin exam: Present: normal color Results - Labs CBC & BMP: 04/02/16 03:01 04/03/16 03:33
[2016-04-04] MEDS: ENOXAPARIN 40 MG/0.4 ML SYRINGE SUBCUT SCH (00:51)
[2016-04-04 05:24] LABS: Basophils # 0.1 10*3/uL (0.0-0.2); Basophils % 0.4 % (0.0-0.8); Eosinophils # 0.3 10*3/uL (0.0-0.87); Eosinophils % 2.1 % (0.00-10.9); Hematocrit 31.9 VOL% (42.0-52.0); Hemoglobin 10.3 GM/DL (14.0-18.0); Immature Granulocytes % 0.6 %; Immature Granulocytes Absolute 0.09 #; Lymphocytes # 1.6 10*3/uL (1.4-4.0); Lymphocytes % 10.6 % (21.2-54.2); Mean Corpuscular HGB Conc 32.3 GM/DL (32-36); Mean Corpuscular Hemoglobin 30 PG (27-34); Mean Corpuscular Volume 91.4 FL (87-102); Monocytes # 1.6 10*3/uL (0.11-0.8); Monocytes % 10.6 % (1.7-12.7); NRBC # 0.13 10*3/uL; Neutrophils # 11.4 10*3/uL (1.4-7.4); Neutrophils % 75.7 % (38.7-73.9); Platelet Count 191 10*3/uL (130-400); Red Blood Count 3.49 10*6/uL (3.8-5.5); Red Cell Distribution Width 15.2 % (9.3-17.3); White Blood Count 15.1 10*3/uL (4.5-13.71)
[2016-04-04] MEDS: PANTOPRAZOLE 40 MG VIAL IV SCH (10:18)
--- NOTE | 2016-04-04 13:35 | Discharge Summary ---
Hospital Course - Hospital Course Hospital Course: Mr. Vergara is a 45 year old male from [facility]. He is accompanied by his father who states that he has had sickle cell anemia with medical care since a child. The father states that the patient lives in [place] became to visit him here near [place] yesterday. The patient's father states that he awoke this morning complaining of generalized pain consistent with sickle cell crisis. The pain worsened through the day and the family brought him to our emergency room this afternoon. The patient has become progressively less alert and continues to have cordiform movements and does not lay still even if commanded. The patient's symptoms are associated with fever. The patient's symptoms are not associated with shortness of breath. The patient's symptoms are associated with profound anemia and leukocytosis. The patient is now admitted to the hospital for treatment of apparent sickle cell crisis with rhabdomyolysis and acute renal failure with possible underlying chronic kidney failure. Patient was admitted to our service with Dr. Tran. Patient was significantly altered on admission. Patient spent several days in the unit. His creatinine normalized over several days of IV fluids. Patient's mental status improved greatly. Patient said his normal state now. He is acting appropriately and really not complaining about significant pain. We are unsure of his home meds at this time. I do note that he takes Dilaudid 8 mg every 6 hours when necessary and I told him I would give him a prescription for a week. He can follow-up with his regular doctor in [place] for his medical needs Diagnosis - Discharge Diagnosis (1) Hypertension Status: Acute (2) Altered mental status Status: Acute (3) Sickle cell anemia with pain Status: Acute (4) Renal failure (ARF), acute on chronic Status: Acute Discharge Plan - Discharge Data Disposition: Disch To Home/Self Care Condition at Discharge: Stable Discharge Diet: advance to your usual diet Activity: resume usual activities as tolerated Hygiene: no restrictions - Discharge Medications New Hydromorphone HCl [Dilaudid] 8 mg PO Q6H PRN #28 tablet PRN Reason: Pain - Follow Up or Referral - Forms/Instructions Additional Discharge Instructions: Patient should resume all his home medications Exam - Constitutional Vitals: Period Temp Pulse Resp BP Sys/Craig Pulse Ox Last 24 Hr 97.1 F-99.0 F 64-85 14-20 131-156/71-94 92-100 Constitutional System: No acute distress Head: Normocephalic, atraumatic. Ears, Nose and Throat System: No evidence of Otitis or Mastoiditis. No epistaxis or discharge Eyes System: Pupils equal, round, and reactive. Extraocular muscles intact. Neck: Supple, without adenopathy, No jugular venous distention. No thyromegaly , neck mass, or prior surgery apparent. Respiratory System: Chest clear to auscultation. Cardiovascular System: Heart with regular rate and rhythm. No murmur. GI System: Abdomen soft, nontender. Normoactive bowel sounds present. Musculoskeletal System: limbs with no pedal edema. Full distal pulses. Reduced muscular bulk and tone Neurological System: Moves all extremities Psychiatric System: Conversation is appropriate Discharge Results Labs on day of discharge: Labs from last 24 hours 04/04/16 04/04/16 04/04/16 06:17 04:20 02:58 WBC 15.1 H D RBC 3.49 L Hgb 10.3 L Hct 31.9 L MCV 91.4 MCH 30 MCHC 32.3 RDW 15.2 Plt Count 191 MPV 12.0 Neut % (Auto) 75.7 H Lymph % (Auto) 10.[address] [place] % (Auto) 10.6 Eos % (Auto) 2.1 Baso % (Auto) 0.4 Neut # (Auto) 11.4 H Lymph # (Auto) 1.6 [place] # (Auto) 1.6 H Eos # (Auto) 0.3 Baso # (Auto) 0.1 Immature Gran % 0.6 Nucleated RBC % 0.9 Immature Gran # 0.09 Nucleated RBCs # 0.13 POC Glucose 109 H 121 H 04/03/16 17:36 WBC RBC Hgb Hct MCV MCH MCHC RDW Plt Count MPV Neut % (Auto) Lymph % (Auto) [place] % (Auto) Eos % (Auto) Baso % (Auto) Neut # (Auto) Lymph # (Auto) [place] # (Auto) Eos # (Auto) Baso # (Auto) Immature Gran % Nucleated RBC % Immature Gran # Nucleated RBCs # POC Glucose 126 H DS: Provider Date of admission: 03/28/16 21:14 Primary care physician: . No PCP Attending physician on admission: Oz Tran MD Consults: 03/28/16 23:06 Consult to Physician [CONS] Routine Comment: renal failure Consulting Provider: Erik Hwang 03/28/16 23:57 Consult to Dietitian [CONS] Routine Reason for Dietitian: Other Consult Comment: Admission MST score 04/01/16 08:55 Consult to Dietitian [CONS] Routine Reason for Dietitian: TF-Initiate/Manage Discharging clinician: Elijah Pedraza MD
[2016-04-04 14:14] VITALS: BP 124/77
[2016-04-08] MEDS ORDERED: cloNIDine 0.3 MG/24 HR PATCH TRANSDERM SCH (09:00)
== END 2016-04-04 16:40 | disposition home or self-care (01) | DRG 812 ==
LOC: N.ED 18:11 → SUATTDRO 21:14 → N.EDINP 21:14 → N.ICU 22:48 → N.4E 04-03 19:19
PROVIDERS: ADMIT Internal Medicine; ATTEND Internal Medicine